=== PATIENT | female | born 1995 | race Caucasian/White ===

== ENCOUNTER → 2020-12-18 16:16 | Outpatient (CLI) | payer BC, SELFPAY ==
[2020-12-18 14:07] VITALS: BMI 32.7
[2020-12-18 17:25] LABS: Absolute Lymphocyte Count 2.32 X10^3/uL (0.83-4.51); Absolute Neutrophil Count 8.2 X10^3/uL (2.0-7.7); Basophil# 0.05 X10^3/uL; Basophil% 0.4 % (0-1); Eosinophil# 0.14 X10^3/uL; Eosinophils% 1.2 % (0-5); Hematocrit 38.1 % (37-47); Hemoglobin 12.9 g/dL (12.0-15.0); Lymphocyte # 2.32 X10^3/ul (0.83-4.51); Lymphocyte % 20.2 % (19-41); Mean Corp Hgb Conc 33.9 g/dL (32-36); Mean Corpuscular Hgb 29.7 pg (27.0-32.0); Mean Corpuscular Volume 87.8 fL (81-99); Mean Platelet Vol. 9.8 fl (6.2-12.0); Monocyte# 0.71 X10^3/uL; Monocyte% 6.2 % (0-10); NRBC Flagged by Analyzer 0 % (0-5); Neutrophil # 8.21 X10^3/uL (2.7-7.7); Neutrophil % 71.4 % (47-70); Platelet Count 306 K/mm3 (150-450); RBC Distribution Width CV 12.7 % (11.6-14.6); RBC Distribution Width SD 40.8 fl (35.1-43.9); Red Blood Count 4.34 M/mm3 (4.2-5.4); White Blood Count 11.5 K/mm3 (4.4-11.0)
[2020-12-18 17:28] LABS: Protein, Urine (Random) 17.9 mg/dL (<11.9); Protein:Creat Ratio 107 mg/g CRE (0-200)
[2020-12-18 17:30] LABS: NATERA MAILED SPECIMEN
[2020-12-18 17:41] LABS: Amphetamine Urine VISTA NEGATIVE (<1000 ng/mL); Barbiturate Urine VISTA NEGATIVE (< 200 ng/mL); Benzodiazepine Urine VISTA NEGATIVE (< 200 ng/mL); Cocaine Urine VISTA NEGATIVE (< 300 ng/mL); Ecstacy Urine VISTA NEGATIVE (< 500 ng/mL); Methadone Urine VISTA NEGATIVE (< 300 ng/mL); PCP Urine VISTA NEGATIVE (< 25 ng/mL); THC Urine VISTA NEGATIVE (< 50 ng/mL); Vista UDS pH Range 6
[2020-12-18 18:05] LABS: ALB/GLOB Ratio 0.8 RATIO (0.9-2.4); AST(SGOT) 13 U/L (15-37); Alanine Aminotransfer ALT/SGPT 19 U/L (13-56); Albumin, Serum 3.5 g/dL (3.2-5.0); Alkaline Phosphatase 94 U/L (45-117); Anion Gap 8 (5-15); BUN 10 mg/dL (7-18); BUN/Creat Ratio 17.1 RATIO (10-20); Calcium,Total 9.1 mg/dL (8.5-10.1); Chloride 104 mmol/L (98-107); Creatinine, Serum 0.58 mg/dL (0.55-1.02); EST Glomerular Filtration Rate 131 mL/min (>60); Est Glom Filt Rate - Afr Amer 159 mL/min (>60); Globulin 4.2 g/dL (2.2-4.2); Glucose 88 mg/dL (74-106); Glucose Challenge Gest 1H 50g 88 mg/dL (70-140); Potassium 3.2 mmol/L (3.5-5.1); Protein, Total 7.7 g/dL (6.4-8.2); Sodium Level 137 mmol/L (136-145)
[2020-12-19 08:56] LABS: HIV - WCH Non-Reactive (Nonreactive); Hepatitis B Surface Antigen Non-Reactive (Nonreactive); Hepatitis C Antibody Non-Reactive (Nonreactive); Rubella IgG Reactive (Nonreactive); Syphilis Antibodies Non-reactive
[2020-12-22 04:06] LABS: Chlamydia By Nucleic Acid AMP Negative (Negative)
[2020-12-25 15:03] LABS: Gonococcus By Nucleic Acid AMP Negative (Negative)
== END ==
PROVIDERS: PCP Family Medicine; Referring Provider Obstetrics & Gynecology; Visit Provider Obstetrics & Gynecology
DX: Z34.90 Encounter for supervision of normal pregnancy, unspecified, unspecified trimester (principal)
CPT/HCPCS: 36415; 80053; 80307; 82570; 82950; 84156; 85025; 86703; 86762; 86780; 86803; 86850; 86900; 86901; 87086; 87088; 87340; 87491; 87591

== ENCOUNTER → 2021-04-06 13:04 | Outpatient (CLI) | payer BC, SELFPAY ==
[2021-04-06 13:48] LABS: Absolute Lymphocyte Count 2.04 X10^3/uL (0.83-4.51); Absolute Neutrophil Count 8.8 X10^3/uL (2.0-7.7); Basophil# 0.03 X10^3/uL; Basophil% 0.3 % (0-1); Eosinophil# 0.17 X10^3/uL; Eosinophils% 1.4 % (0-5); Hematocrit 35.5 % (37-47); Hemoglobin 12.2 g/dL (12.0-15.0); Lymphocyte # 2.04 X10^3/ul (0.83-4.51); Lymphocyte % 17.2 % (19-41); Mean Corp Hgb Conc 34.4 g/dL (32-36); Mean Corpuscular Volume 87.2 fL (81-99); Mean Platelet Vol. 10.2 fl (6.2-12.0); Monocyte# 0.74 X10^3/uL; Monocyte% 6.2 % (0-10); NRBC Flagged by Analyzer 0 % (0-5); Neutrophil # 8.84 X10^3/uL (2.7-7.7); Neutrophil % 74.3 % (47-70); Platelet Count 289 K/mm3 (150-450); RBC Distribution Width CV 12.7 % (11.6-14.6); RBC Distribution Width SD 40.1 fl (35.1-43.9); Red Blood Count 4.07 M/mm3 (4.2-5.4); White Blood Count 11.9 K/mm3 (4.4-11.0)
[2021-04-06 14:13] LABS: Glucose Challenge Gest 1H 50g 102 mg/dL (70-140)
== END ==
PROVIDERS: PCP Family Medicine; Referring Provider Obstetrics & Gynecology; Visit Provider Obstetrics & Gynecology
DX: O09.90 Supervision of high risk pregnancy, unspecified, unspecified trimester (principal); Z3A.00 Weeks of gestation of pregnancy not specified
CPT/HCPCS: 36415; 82950; 85025

== ENCOUNTER 2021-05-04 16:05 | Outpatient (CLI) | payer BC, SELFPAY ==
[2021-05-04] VITALS (71 sets, daily range): BP systolic 139–175; BP diastolic 84–106; PULSE 84–122; RESP 14–18; TEMP 36.2–36.8; O2SAT 92–100; BMI 37.3
[2021-05-04 17:03] LABS: Hematocrit 40.4 % (37-47); Hemoglobin 14.3 g/dL (12.0-15.0); Mean Corp Hgb Conc 35.4 g/dL (32-36); Mean Corpuscular Hgb 30.5 pg (27.0-32.0); Mean Corpuscular Volume 86.1 fL (81-99); Mean Platelet Vol. 10.9 fl (6.2-12.0); Platelet Count 280 K/mm3 (150-450); RBC Distribution Width SD 40.2 fl (35.1-43.9); Red Blood Count 4.69 M/mm3 (4.2-5.4); White Blood Count 10.2 K/mm3 (4.4-11.0)
[2021-05-04 17:09] LABS: Protein, Urine (Random) 28.8 mg/dL (<11.9); Protein:Creat Ratio 117 mg/g CRE (0-200)
--- NOTE | 2021-05-04 17:10 | OB.TRI.PN ---
Progress Notes Date of Service: 05/04/21 Progress Note: Patient presents for triage evaluation secondary to severely elevated blood pressure in office FHT: 140 Moderate variability reactive no decelerations category I tracing Bowler: no regular Contractions Assessment and plan: severe gestational htn vs preeclampsia with severe features- plan maternal transport to [facility] discussed with Dr Díaz. bmz given, magnesium sulfate 6g bolus then 2g given IV, IV labetalol given per protocol and then oral labetalol started. discussed with patient. Laboratory Studies: Laboratory Tests 05/04/21 05/04/21 Range/Units 16:50 16:30 WBC 10.2 (4.4-11.0) K/mm3 RBC 4.69 (4.2-5.4) M/mm3 Hgb 14.3 (12.0-15.0) g/dL Hct 40.4 (37-47) % MCV 86.1 (81-99) fL MCH 30.5 (27.0-32.0) pg MCHC 35.4 (32-36) g/dL RDW Std Deviation 40.2 (35.1-43.9) fl RDW Coeff of Chava 13.0 (11.6-14.6) % Plt Count 280 (150-450) K/mm3 MPV 10.9 (6.2-12.0) fl U Random Total Protein 28.8 H (<11.9) mg/dL Urine Creatinine 246.00 (NO RANGE EST.) mg/dL Protein/Creatinin Ratio 117 (0-200) mg/g CRE Charges/Coding Procedures Urinary/Genital [id number]: [id number] non-stress test Interp
[2021-05-04] MEDS: Labetalol (Prefilled) 20 MG/4 ML IV (17:14)
[2021-05-04] MEDS: Magnesium Sulfate 4gm/100mL 4 GM/100 ML IV.SOLN. IV (17:16)
[2021-05-04] MEDS: Lactated Ringers 1,000 ML 25 ML IV (17:16)
[2021-05-04 17:17] LABS: AST(SGOT) 25 U/L (15-37); Alanine Aminotransfer ALT/SGPT 18 U/L (13-56); EST Glomerular Filtration Rate 107 mL/min (>60); Est Glom Filt Rate - Afr Amer 129 mL/min (>60); Estimated Creatinine Clearance 95.48 ml/min; Uric Acid 4.2 mg/dL (2.6-6.0)
[2021-05-04 17:21] LABS: ALB/GLOB Ratio 0.6 RATIO (0.9-2.4); AST(SGOT) 26 U/L (15-37); Alanine Aminotransfer ALT/SGPT 18 U/L (13-56); Albumin, Serum 2.7 g/dL (3.2-5.0); Alkaline Phosphatase 182 U/L (45-117); Anion Gap 6 (5-15); BUN 10 mg/dL (7-18); BUN/Creat Ratio 14.3 RATIO (10-20); Calcium,Total 9.7 mg/dL (8.5-10.1); Chloride 108 mmol/L (98-107); EST Glomerular Filtration Rate 106 mL/min (>60); Est Glom Filt Rate - Afr Amer 129 mL/min (>60); Estimated Creatinine Clearance 95.48 ml/min; Globulin 4.9 g/dL (2.2-4.2); Glucose 88 mg/dL (74-106); Potassium 3.8 mmol/L (3.5-5.1); Protein, Total 7.6 g/dL (6.4-8.2); Sodium Level 138 mmol/L (136-145)
[2021-05-04] MEDS: Betamethasone/Betamethasone 30 MG/5 ML Vial 12 MG IM (17:32)
[2021-05-04] MEDS: Magnesium Sulfate 4gm/100mL 2 GM/50 ML IV.SOLN. IV (17:35)
[2021-05-04] MEDS: Magnesium Sulfate 20 GM/500 ML BAG IV (17:48)
[2021-05-04] MEDS: Labetalol 100 MG Tablet PO (17:57)
--- NOTE | 2021-05-04 19:02 | NURSING ---
Report called to Denisse CARO at [facility].
== END 2021-05-04 21:10 | disposition other institution (70) ==
LOC: WPOUT 16:15 → WP 16:15
PROVIDERS: PCP Family Medicine; Referring Provider Obstetrics & Gynecology; Visit Provider Obstetrics & Gynecology
DX: O14.10 Severe pre-eclampsia, unspecified trimester (principal); Z3A.00 Weeks of gestation of pregnancy not specified
CPT/HCPCS: 96365; 96366 ×3; 36415; 59025; 59050; 80053; 82565; 82570; 84156; 84450; 84460; 84550; 85027; 96372; 99218; J7120; G0378; J0702

== ENCOUNTER 2021-07-08 17:08 | Outpatient (CLI) | payer BC, SELFPAY ==
[2021-07-13 14:33] LABS: HPV Reflexed? NOT INDICATED
== END 2021-07-08 23:59 | disposition short-term general hospital (02) ==
LOC: LABSPEC 17:09
PROVIDERS: PCP Family Medicine; Visit Provider Obstetrics & Gynecology
DX: Z12.4 Encounter for screening for malignant neoplasm of cervix (principal)
CPT/HCPCS: 88175; G0145